=== PATIENT | male | born 1990 | race African-American/Black ===

== ENCOUNTER 2017-01-06 08:38 | Emergency (ER) | payer SELFPAY ==
[2017-01-06 08:49] VITALS: BP 143/63; PULSE 60; TEMP 98.2; BMI 26.5
--- NOTE | 2017-01-06 10:20 | PDOC ---
Suture Removal/Wound Check HPI - History of Present Illness Chief Complaint: Suture/Staple Removal (other) Stated Complaint: SUTURES REMOVAL Time Seen by Provider: 01/06/17 09:16 History Source: Yes: Patient Exam Limitations: Yes: No Limitations Treated at: Other ED (Pt. was seen at [facility] two weeks ago. 20 simple interrupted sutures placed on the left face.) - Previous ED Treatment Type of procedure performed on last visit: Yes: Laceration Repair (20 simple interrupted sutures placed on the left face 2 weeks ago. Two horizontal linear wounds on extending from the corner of the mouth to the mid face, approximately 5cm long, second above the L mandible horizontal linear approximately 3cm long) Tetanus Immunization: Yes: Up to Date Antibiotics Prescribed: Yes (Was prescribed antibiotics; pt cannot remember the name, finished treatment) - Onset of Previous Treatment Date of Occurence: 12/23/16 Past History - Travel Traveled outside of the country in the last 30 days: No Close contact w/someone who was outside of country & ill: No - Past Medical History Allergies/Adverse Reactions: Allergies No Known Allergies Allergy (Verified 01/06/17 08:39) Home Medications: Ambulatory Orders No Home Medications 0 dose .ROUTE UTDICT 06/18/13 Ibuprofen [Motrin -] 800 mg PO TID #30 tablet 08/22/15 - Immunization History Immunizations Up to Date: No - Social History Smoking History: No Smoking Status: Current every day smoker Number of Ciarettes Per Day: 0 Alcohol Use: occasionally Drug Use: none Suture Removal/Wound Check PE - Physical Exam Laceration/Wound Check Symptoms: reports: Other Comment (swelling of laceration above the L mandible). denies: Pain, Fever, Chills, Discharge Current Severity Level: None Location of Laceration/Wound: left: Face *Review of Systems - Review of Systems Able to Perform ROS?: Yes Constitutional: No: Chills, Fever, Weakness HEENTM: No: Throat Pain, Mouth Pain, Mouth Swelling Integumentary: Yes: Erythema, Other (Swelling). No: Bruising, Pruritus Medical Decision Making - Medical Decision Making 01/06/17 10:42 Pt. is a 26 y/o male who presents to have his stitches removed. 2 wounds on the L face;1 extending from the L corner of the mouth and approximately 5cm long. Second from L mandible approximately 3 cms. 20 simple interrupted sutures were removed. Approximately 1cm of dehiscence with mild swelling around the L mandible wound. Pt. states that the swelling around this wound has dramatically decreased since the stitches were placed. Area was cleaned with betadine before and after stitches were removed. Steri strips placed over the wound. Pt. states tetanus is UTD and was treated with antibiotics, but does not remember the name of them. Patient was instructed to keep the wound areas clean and dry. Told to let the steristrips fall off on their own and then use paper tape over the area of dehiscence. May start using scar cream starting one week after wound has completely closed. Pt. is to return for a wound check on 01/09/17. Patient understands all discharge instructions and all questions were answered at this tie. *DC/Admit/Observation/Transfer Diagnosis at time of Disposition: Visit for suture removal - Discharge Dispostion Disposition: HOME Condition at time of disposition: Stable Admit: No - Referrals Referrals: Jose Raul Wade MD [Primary Care Provider] - - Patient Instructions Printed Discharge Instructions: DI for Suture Removal Additional Instructions: Your stitches were removed today. There is one area that did not heal completely. Steristrips were placed over the area. DO NOT remove the steristrips , let them fall off on their own. Once the steristrips fall off, use paper tape from the pharmacy to keep the area closed. Once the area closes on its own, you no longer need the paper tape. Once the area is completely closed; you may use Mederma on the scar (may start as early as 01/13/17) Keep the area clean and dry. Do not get the area wet. Do not soak your head (ie go swimming) for at least two weeks. Return to the emergency department for a wound check on Tuesday01/09/17. Return to the ED if you develop signs of infection such as, fevers, chills, nausea, vomiting, or purulent drainage. Return in the wound opens more or if you have any changes in your symptoms. - Post Discharge Activity Work/School Note: Back to Work
== END 2017-01-06 10:33 | disposition home or self-care (01) ==
LOC: JERFT 08:38 → JER 08:38 → JERFT 10:33
DX: Z48.02 Encounter for removal of sutures (principal)
CPT/HCPCS: 99281-25

== ENCOUNTER 2017-01-10 10:05 | Emergency (ER) | payer SELFPAY ==
[2017-01-10 10:10] VITALS: BP 123/85; PULSE 63; TEMP 98.3; BMI 26.4
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
== END 2017-01-10 11:58 | disposition home or self-care (01) ==
LOC: JERFT 10:05
DX: Z09 Encounter for follow-up examination after completed treatment for conditions other than malignant neoplasm (principal)
CPT/HCPCS: 99281-25

== ENCOUNTER 2017-11-14 19:41 | Emergency (ER) | payer SELFPAY ==
[2017-11-14 20:05] VITALS: BP 142/100; PULSE 52; TEMP 98.6; BMI 26.9
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
[2017-11-14] MEDS ORDERED: DIPHTH,PERTUSS(ACELL),TET 0.5 ML DISP.SYRIN IM ONE (20:10)
[2017-11-14 20:16] LABS: URINE APPEARANCE Clear; URINE BILIRUBIN 1+ (NEGATIVE); URINE BLOOD Negative (NEGATIVE); URINE GLUCOSE (UA) Negative (NEGATIVE); URINE KETONE Negative (NEGATIVE); URINE LEUK ESTERASE Negative (NEGATIVE); URINE NITRITE Negative (NEGATIVE)
[2017-11-14 20:17] LABS: URINE COLOR YELLOW; URINE PROTEIN 1+ (NEGATIVE)
[2017-11-14 20:56] LABS: URINE RBC 0-2 /hpf (0-3); URINE WBC 20-30 (0-2)
[2017-11-14 20:57] LABS: EPI CELLS FEW /HPF; URINE BACTERIA FEW /hpf (NEGATIVE)
== END 2017-11-14 21:42 | disposition home or self-care (01) ==
LOC: FER 19:41
PROC: 3E0234Z Introduction of Serum, Toxoid and Vaccine into Muscle, Percutaneous Approach (ICD-10-PCS; principal; 2017-11-14)
DX: S62.021A Displaced fracture of middle third of navicular [scaphoid] bone of right wrist, initial encounter for closed fracture (principal); V28.4XXA Motorcycle driver injured in noncollision transport accident in traffic accident, initial encounter; Y93.55 Activity, bike riding; Y92.9 Unspecified place or not applicable
CPT/HCPCS: 73110-TC-RT-FY; 73130-TC-RT-FY; 81003; 81015; 90715; 99283-25

== ENCOUNTER 2018-04-03 05:34 | Emergency (ER) | payer OTHER ==
[2018-04-03 05:51] VITALS: BP 122/59; PULSE 52; TEMP 97.9; BMI 26.4
[2018-04-03] MEDS ORDERED: KETOROLAC TROMETHAMINE 60 MG/2 ML VIAL IM ONE (06:07)
--- NOTE | 2018-04-03 06:13 | PDOC ---
History of Present Illness - General Chief Complaint: Pain, Acute Stated Complaint: LT KNEE PAIN History Source: Patient Exam Limitations: No Limitations - History of Present Illness Initial Comments: 04/03/18 06:08 Pt is 27 y/o male presenting with L-knee pain of 1 day duration. Pt states that pain started immediately when he planted and twisted his leg while playing basketball yesterday. Pt wrapped the knee and went home but the pain became unbearable prompting him to come to the ED. Rates pain as 10/10. Admits to decreased range of motion and moderate swelling in the L-knee. Able to ambulate but with pain. Denies SOB, CP, N/V/C/D, LOC, dizziness, numbness or tingling. PMH: Denies: fx right wrist PSH: Removal of benign tumor behind R-ear ALL: NKDA, NKDA Social: Occasional marijuana use. Denies alcohol or tobacco use. Occurred: reports: yesterday Method of Injury: Yes: twisted Past History - Past Medical History Allergies/Adverse Reactions: Allergies Allergy/AdvReac Type Severity Reaction Status Date / Time No Known Allergies Allergy Verified 04/03/18 05:42 Home Medications: Ambulatory Orders NK [No Known Home Medication] 01/10/17 COPD: No - Immunization History Immunization Up to Date: No - Suicide/Smoking/Psychosocial Hx Smoking Status: No Smoking History: Never smoked Have you smoked in the past 12 months: No Number of Cigarettes Smoked Daily: 0 Hx Alcohol Use: No Drug/Substance Use Hx: Yes ([facility]) Substance Use Type: Marijuana Review of Systems - Review of Systems Constitutional: Yes: See HPI. No: Loss of Appetite HEENTM: No: Blurred Vision Respiratory: No: Shortness of Breath Cardiac (ROS): No: Palpitations Musculoskeletal: Yes: See HPI Neurological: No: Headache, Numbness, Paresthesia, Tingling, Weakness *Physical Exam - Vital Signs Last Vital Signs Temp Pulse Resp BP Pulse Ox 97.9 F 52 L 18 122/59 98 04/03/18 05:42 04/03/18 05:42 04/03/18 05:42 04/03/18 05:42 04/03/18 05:42 - Physical Exam HEENT: positive: EOMI Neck: positive: Normal Thyroid Respiratory/Chest: positive: Lungs Clear, Normal Breath Sounds Cardiovascular: positive: Regular Rhythm, Regular Rate, S1, S2 Gastrointestinal/Abdominal: positive: Normal Bowel Sounds, Soft Musculoskeletal: positive: Decreased Range of Motion (L-knee) Extremity: positive: Swelling (L-knee) Neurologic: positive: matcher leather parts II-XII NML intact, Fully Oriented, Alert, Normal Mood/ Affect, Normal Response, Motor Strength 5/5 Medical Decision Making - Medical Decision Making 04/03/18 06:22 Pt presenting with L-Knee pain with moderate swelling with no direct trauma. Pt will be assess for possible meniscus tear. X-ray of the knee is ordered along with toradol for pain control. Pt instructed to follow up with his orthopedic surgeon at his earliest availability. left knee aced and crutches given, crutch walk with return demonstration. I discussed the physical exam findings, ancillary test results and final diagnoses with the patient. I answered all of the patient's questions. The patient was satisfied with the care received and felt comfortable with the discharge plan and treatment plan. The Patient agrees to follow up with the primary care physician within 24-72 hours. *DC/Admit/Observation/Transfer Diagnosis at time of Disposition: Knee injury Qualifiers: Encounter type: initial encounter Laterality: left Qualified Code(s): S89.92XA - Unspecified injury of left lower leg, initial encounter - Discharge Dispostion Disposition: HOME Condition at time of disposition: Stable - Referrals - Patient Instructions Printed Discharge Instructions: DI for Knee Pain Additional Instructions: Your Discharge Instructions: You must call primary care physician within 24 hours to arrange follow-up. Return to the Emergency Department with any new, persistent or worsening symptoms, for fever, chills, SOB, dizziness or any other concerning changes that may occur. You must follow-up with your orthopedist Dr. Liriano for further treatment and follow-up - Post Discharge Activity
[2018-04-03] MEDS ORDERED: KETOROLAC TROMETHAMINE 60 MG/2 ML VIAL ONE (06:23)
== END 2018-04-03 07:00 | disposition home or self-care (01) ==
LOC: JER 05:34
PROC: 3E0233Z Introduction of Anti-inflammatory into Muscle, Percutaneous Approach (ICD-10-PCS; principal; 2018-04-03)
DX: S89.82XA Other specified injuries of left lower leg, initial encounter (principal); X50.1XXA Overexertion from prolonged static or awkward postures, initial encounter; Y93.67 Activity, basketball; Y92.310 Basketball court as the place of occurrence of the external cause; Y99.8 Other external cause status
CPT/HCPCS: 73562-TC-LT-FY; 96372; 99281-25

== ENCOUNTER 2019-01-31 18:38 | Emergency (ER) | payer SELFPAY ==
[2019-01-31 18:51] VITALS: TEMP 98.3; BMI 26.0
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
[2019-01-31 20:42] LABS: BASO % 1.2 % (0-2.0); EOS % 3.5 % (0-4.5); HEMATOCRIT 43.1 % (35.4-49); HEMOGLOBIN 14.3 GM/dL (11.7-16.9); LYMPH % 44.3 % (8-40); MCH 31.1 pg (25.7-33.7); MCHC 33.2 g/dl (32.0-35.9); MEAN CELL VOLUME 93.6 fl (80-96); MEAN PLT VOLUME 8.4 fl (7.5-11.1); MONO % 10.2 % (3.8-10.2); NEUT % 40.8 % (42.8-82.8); PLATELET COUNT 212 K/MM3 (134-434); RBC 4.61 M/mm3 (4.00-5.60); RDW 12.6 % (11.9-15.9); WHITE BLOOD COUNT 5.3 K/mm3 (4.0-10.0)
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
[2019-01-31 21:12] LABS: ALBUMIN 3.8 g/dl (3.4-5.0); ALK PHOS 56 U/L (45-117); ANION GAP 7 MMOL/L (8-16); BILIRUBIN,TOTAL 0.7 mg/dL (0.2-1); BLOOD UREA NITROGEN 12.2 mg/dL (7-18); CHLORIDE 104 mmol/L (98-107); CO2 26 mmol/L (21-32); GLUCOSE,RANDOM 84 mg/dL (74-106); MAGNESIUM 2.1 mg/dL (1.8-2.4); PHOSPHOROUS 3.8 mg/dL (2.5-4.9); SGOT/AST 16 U/L (15-37); SGPT/ALT 18 U/L (13-61); SODIUM 137 mmol/L (136-145); TOT PROT 7.2 g/dl (6.4-8.2)
[2019-01-31 22:05] VITALS: BP 124/73; PULSE 45
--- NOTE | 2019-02-01 13:39 | EKG ---
Test Reason : Blood Pressure : / mmHG Vent. Rate : 040 BPM Atrial Rate : 040 BPM P-R Int : 148 ms QRS Dur : 106 ms QT Int : 432 ms P-R-T Axes : 069 -12 010 degrees QTc Int : 352 ms MARKED SINUS BRADYCARDIA WITH FUSION COMPLEXES POSSIBLE LEFT ATRIAL ENLARGEMENT INCOMPLETE RIGHT BUNDLE BRANCH BLOCK LEFT VENTRICULAR HYPERTROPHY ABNORMAL ECG NO PREVIOUS ECGS AVAILABLE Confirmed by ELIZABTEH LIZAMA MD ([id number]) on 02/01/2019 1:38:58 PM Referred By: Confirmed By:ELIZABETH LIZAMA MD
--- NOTE | 2019-02-01 13:39 | EKG ---
Test Reason : Blood Pressure : / mmHG Vent. Rate : 038 BPM Atrial Rate : 038 BPM P-R Int : 126 ms QRS Dur : 106 ms QT Int : 438 ms P-R-T Axes : 063 -06 010 degrees QTc Int : 348 ms MARKED SINUS BRADYCARDIA WITH PREMATURE VENTRICULAR COMPLEXES OR FUSION COMPLEXES RSR' OR QR PATTERN IN V1 SUGGESTS RIGHT VENTRICULAR CONDUCTION DELAY MINIMAL VOLTAGE CRITERIA FOR LVH, MAY BE NORMAL VARIANT ABNORMAL ECG WHEN COMPARED WITH ECG OF 31-JAN-2019 18:43, PREMATURE VENTRICULAR COMPLEXES ARE NOW PRESENT Confirmed by ELIZABETH LIZAMA MD ([id number]) on 02/01/2019 1:39:19 PM Referred By: Confirmed By:ELIZABETH LIZAMA MD
== END 2019-01-31 22:23 | disposition home or self-care (01) ==
LOC: JER 18:38 → JERFT 18:38 → JER 22:23
DX: M54.5 Low back pain (principal); V49.49XA Driver injured in collision with other motor vehicles in traffic accident, initial encounter; Y92.414 Local residential or business street as the place of occurrence of the external cause; Y93.89 Activity, other specified; Y99.8 Other external cause status; R00.1 Bradycardia, unspecified
CPT/HCPCS: 36415; 72110-TC-FY; 80053; 83735; 84100; 84436; 84439; 84443; 84479; 84481; 84484; 85025; 93005; 93010; 99282-25

== ENCOUNTER 2020-11-02 21:58 | Emergency (ER) | payer OTHER ==
[2020-11-02 22:07] VITALS: BP 132/78; PULSE 57; TEMP 97.8; BMI 26.0
== END 2020-11-02 22:21 | disposition home or self-care (01) ==
LOC: FER 21:58
DX: R09.81 Nasal congestion (principal)
CPT/HCPCS: 99283-25

== ENCOUNTER 2023-06-13 15:28 | Emergency (ER) | payer OTHER ==
[2023-06-13 15:33] VITALS: BP 123/74; PULSE 52; RESP 16; TEMP 98; BMI 27.3
== END 2023-06-13 16:04 | disposition home or self-care (01) ==
LOC: FER 15:28
DX: M25.512 Pain in left shoulder (principal); M62.838 Other muscle spasm
CPT/HCPCS: 99282-25